=== PATIENT | female | born 1990 | race Caucasian/White ===

== ENCOUNTER 2018-07-09 17:10 | Inpatient (IN) | payer OTHER ==
[2018-07-09] MEDS ORDERED: SODIUM PHOSPHATE/NA BIPHOS 133 ML ENEMA PR ONE (17:26)
[2018-07-09] MEDS ORDERED: DEXTROSE 5%-LACTATED RINGERS 1,000 ML IV SCH (17:30)
[2018-07-09] MEDS ORDERED: DINOPROSTONE 10 MG VAGINAL SUPPOSITORY VG ONE (17:35)
[2018-07-09 18:09] VITALS: BMI 39.8
--- NOTE | 2018-07-09 18:20 | HP ---
Past Medical History - Primary Care Physician PCP:: Brigette Dominguez - Admission Chief Complaint: 27 yrs , 40.5 weeks admitted for induction of labor. sono , bpp /, , vx , dipak 12.1 cmm, efw 9lbs. pt is monitored by NST whih were reactive History of Present Illness: PNC at [address] [place] [address]. wt gain 19 lbs . 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 No: HTN Gastrointestinal: Yes: Gastritis Renal/: Yes: Other (urine gbs bacteriuria pos on 03/27/18) Reproductive: Yes: Other (pap 11/30/17 : pap ascus , non 16/18 HR HPV pos) ...: 3 ...Para: 2 (09/08/12 6'12" 08/08/15 7' ) ...Term: 2 ...: 0 ...Spon : 0 ...Induced : 0 ...Multiple Gestation: 0 ...LMP: 09/27/17 ... Weeks Gestation by Dates: 40.5 ...EDC by Dates: 07/04/18 ...EDC by Sono: 07/04/18 Heme/Onc: No: Anemia Infectious Disease: No: AIDS, HIV, STD's, Tuberculosis Psych: Yes: Other (no h/o mental disorder) - Past Surgical History Past Surgical History: Yes: None Hx Myomectomy: No Hx Transabdominal Cerclage: No - Smoking History Smoking history: Never smoked Have you smoked in the past 12 months: No - Alcohol/Substance Use Hx Alcohol Use: No History of Substance Use: reports: None - Social History History of Recent Travel: No Home Medications - Allergies Allergies/Adverse Reactions: Allergies Allergy/AdvReac Type Severity Reaction Status Date / Time No Known Allergies Allergy Verified 07/09/18 17:44 - Home Medications Home Medications: Ambulatory Orders Vitamins (Sjr) - 1 tab PO DAILY tablet 07/29/15 Physical Exam - Maternity Vital Signs: Vital Signs Temperature 98.3 F 07/09/18 17:30 Pulse Rate 77 07/09/18 17:30 Respiratory Rate 18 07/09/18 17:30 Blood Pressure 131/80 07/09/18 17:30 O2 Sat by Pulse Oximetry (%) Selected Entries 07/09/18 17:44 Weight 204 lb Constitutional: Yes: Well Nourished, Calm, Obese Eyes: Yes: WNL HENT: Yes: WNL, Normocephalic Neck: Yes: WNL Cardiovascular: Yes: WNL, Regular Rate and Rhythm Lungs: Clear to auscultation Breast(s): Yes: WNL - Abdominal Exam/OB Fundal Height: 40 Number of Fetuses: Single Presentation: Vertex Contractions: No Heart Rate (range): 140 Heart Rate Location: [facility] Category: I Accelerations: Uniform Decelerations: None - Vaginal Exam/OB Vaginal Bleediing: No Speculum Exam: No Dilatation (cm): ft Effacement (%): 50 Amniotic Membrane Status: Intact Presentation: Vertex/Position Station: -3 (-3/-4) - Physical Exam Musculoskeletal: Yes: WNL Extremities: Yes: WNL. No: Calf Tenderness Edema: Yes Edema: LLE: 1+, RLE: 1+ Deep Tendon Reflex Grade: Normal +2 ...Motor Strength: WNL Psychiatric: Yes: WNL, Alert, Oriented - Labs Lab Results: Laboratory Tests 07/09/18 07/09/18 07/09/18 19:00 19:00 19:00 WBC 9.1 Hgb 12.7 Hct 37.5 MCV 86.2 MCH 29.2 MCHC 33.9 RDW 15.3 Plt Count 197 Absolute Neuts (auto) 6.6 Neutrophils % 72.1 Lymphocytes % 22.1 Monocytes % 5.3 Eosinophils % 0.2 Basophils % 0.3 PT with INR 10.10 INR 0.89 PTT (Actin FS) 30.5 Sodium 142 Potassium 3.9 Chloride 109 H Carbon Dioxide 19 L BUN 10 Creatinine 0.4 L Random Glucose 114 H Blood Type Antibody Screen 07/09/18 19:00 WBC Hgb Hct MCV MCH MCHC RDW Plt Count Absolute Neuts (auto) Neutrophils % Lymphocytes % Monocytes % Eosinophils % Basophils % PT with INR INR PTT (Actin FS) Sodium Potassium Chloride Carbon Dioxide BUN Creatinine Random Glucose Blood Type O POSITIVE Antibody Screen Negative Problem List - Problems (1) Post term over 40 weeks Code(s): O48.0 - POST-TERM (2) Elective induction of labor planned Code(s): SDQ6912 - (3) Obesity (BMI 35.0-39.9 without comorbidity) Code(s): E66.9 - OBESITY, UNSPECIFIED (4) GBS bacteriuria Code(s): R82.71 - BACTERIURIA Assessment/Plan 27 yrs 40.5 weeks , gbs pos in urine , admitted for induction of labor , suspected 9 lb efw Plan cervidil induction , insertee at 5.37 PM trial of vaginal delivery gbs propphylaxis with ampicillin , when uc are regular stadol + phenrgan prn , pt prefers epidural labor analgesia 9.20 Pm pt c/o pain , pelvic ex 1-2 cm/50 % /mi vx -3 fhr 140 -150 uc 1-2-34-4 irregular , dysfunctional
[2018-07-09 19:40] LABS: BASO % 0.3 % (0-2.0); EOS % 0.2 % (0-4.5); HEMATOCRIT 37.5 % (32.4-45.2); HEMOGLOBIN 12.7 GM/dL (10.7-15.3); LYMPH % 22.1 % (8-40); MCH 29.2 pg (25.7-33.7); MCHC 33.9 g/dl (32.0-36.0); MEAN CELL VOLUME 86.2 fl (80-96); MONO % 5.3 % (3.8-10.2); NEUT % 72.1 % (42.8-82.8); PLATELET COUNT 197 K/MM3 (134-434); RBC 4.35 M/mm3 (3.60-5.2); RDW 15.3 % (11.6-15.6); WHITE BLOOD COUNT 9.1 K/mm3 (4.0-10.0)
[2018-07-09 20:01] LABS: INR 0.89 (0.83-1.09); PROTHROMBIN TIME (PATIENT) 10.1 SEC (9.7-13.0)
[2018-07-09 20:04] LABS: ACTIVATED PTT 30.5 SECONDS (25.2-36.5)
[2018-07-09 20:17] LABS: ANION GAP 14 MMOL/L (8-16); BLOOD UREA NITROGEN 10 mg/dL (7-18); CALCIUM 8.9 mg/dL (8.5-10.1); CHLORIDE 109 mmol/L (98-107); CO2 19 mmol/L (21-32); CREATININE 0.4 mg/dL (0.55-1.3); GLUCOSE,RANDOM 114 mg/dL (74-106); POTASSIUM 3.9 mmol/L (3.5-5.1); SODIUM 142 mmol/L (136-145)
[2018-07-09] MEDS ORDERED: AMPICILLIN SODIUM 2 GM VIAL ONE (20:24)
[2018-07-09] MEDS ORDERED: AMPICILLIN - 2 GM in SODIUM CHLORIDE 100 ML IVPB ONE (20:30)
--- NOTE | 2018-07-09 23:00 | PN ---
Progress Note, Labor Vaginal Exam #1 Labor Exam Date: 07/09/18 Labor Exam Time: 22:50 Heart Rate (range): 150 Dilatation: 3 Effacement (%): 70 Amniotic Membrane Status: Intact Presentation: Vertex/Position Station: -2 Remarks: uc q 2-3-4 min irregular fhr cat-1 pt requests for pain meds will take shower first Selected Entries 07/09/18 22:00 Temperature 98.2 F Pulse Rate 82 Blood Pressure 137/79 Vaginal Exam #2 Labor Exam Date: 07/10/18 Labor Exam Time: 01:10 Heart Rate (range): 140 Dilatation: 10 Effacement (%): 100 Amniotic Membrane Status: Ruptured Presentation: Vertex/Position Station: +2 Remarks: fhr cat-1 uc 1-3 min . 12.00 midnight epidural taken c1.05 AM SROM , cervidil expelled . pt pushing. she received 2 doses of Iv Ampicillin Selected Entries 07/10/18 00:45 Pulse Rate 77 Blood Pressure 119/81
[2018-07-09] MEDS ORDERED: BUTORPHANOL TARTRATE 1 MG/ML VIAL IVPUSH ONE (23:15)
[2018-07-09] MEDS ORDERED: PROMETHAZINE HCL 25 MG/1 ML VIAL IVPUSH ONE (23:15)
[2018-07-09] MEDS ORDERED: FENTANYL/BUPIVACAINE/NS/PF - PCEA - 50 ML DISP.SYRIN EP ONE (23:35)
[2018-07-09] MEDS ORDERED: BUPIVACAINE HCL/PF 0.25% (2.5MG/ML) 10 ML VIAL ONE (23:40)
[2018-07-10] MEDS ORDERED: NALOXONE HCL 0.4 MG/ML VIAL IVPUSH PRN (00:03)
[2018-07-10] MEDS ORDERED: AMPICILLIN SODIUM 1 GM VIAL ONE (00:07)
[2018-07-10] MEDS ORDERED: FENTANYL/BUPIVACAINE/NS/PF - PCEA - 50 ML DISP.SYRIN EP SCH (00:15)
[2018-07-10] MEDS ORDERED: AMPICILLIN - 1 GM in SODIUM CHLORIDE 100 ML IVPB SCH (00:30)
[2018-07-10] MEDS ORDERED: ELECTROLYTE-148 SOLN 1,000 ML IV SCH (00:45)
[2018-07-10] MEDS ORDERED: OXYTOCIN 20 UNITS in 0.9% NS 20 UNIT/1,000 ML INFUS.BAG IV ONE ×2 (01:05→03:09)
[2018-07-10] MEDS: OXYTOCIN 20 UNITS in 0.9% NS 20 UNIT/1,000 ML INFUS.BAG IV SCH ×2 (01:25→03:16)
[2018-07-10] MEDS ORDERED: METHYLERGONOVINE MALEATE 0.2 MG/1 ML AMP IM PRN (01:30)
[2018-07-10] MEDS ORDERED: BISACODYL 10 MG SUPP.RECT RC PRN (01:53)
[2018-07-10] MEDS ORDERED: oxyCODONE HCL 5 MG TABLET PO PRN (01:53)
[2018-07-10] MEDS ORDERED: BENZOCAINE 28 GM HEMORRHOIDAL OINTMENT TP PRN (01:53)
[2018-07-10] MEDS ORDERED: WITCH HAZEL 50% (TUCKS) 40 PAD/JAR PAD TP PRN (01:53)
[2018-07-10] MEDS ORDERED: BENZOCAINE 20% 57 GM BOTTLE TP PRN (01:53)
--- NOTE | 2018-07-10 02:07 | PN ---
Delivery - Delivery Vaginal Delivery: No Problems, Spontaneous (baby delivered vx presentation from KYLEIGH position , immediate oral & nasal suction was done , shoulder delivered without difficulty . perineum intact . 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
[2018-07-10] MEDS: FERROUS SO4 325 MG TABLET (FP) PO SCH ×2 (07:52→17:57)
[2018-07-10] MEDS: IBUPROFEN 600 MG TABLET (FP) PO PRN (07:52)
[2018-07-10] MEDS: ACETAMINOPHEN 325 MG TABLET (FP) PO PRN (07:53)
[2018-07-10] MEDS ORDERED: DIPHTH,PERTUSS(ACELL),TET 0.5 ML DISP.SYRIN IM ONE (10:00)
[2018-07-10] MEDS: PRENATAL VITAMINS W/ FOLIC ACID TABLET (FP) PO SCH (10:04)
[2018-07-11] MEDS: ACETAMINOPHEN 325 MG TABLET (FP) PO PRN ×2 (00:52→19:54)
[2018-07-11] MEDS: IBUPROFEN 600 MG TABLET (FP) PO PRN ×2 (00:53→19:55)
[2018-07-11] MEDS: FERROUS SO4 325 MG TABLET (FP) PO SCH ×2 (08:09→17:23)
[2018-07-11] MEDS: PRENATAL VITAMINS W/ FOLIC ACID TABLET (FP) PO SCH (09:19)
[2018-07-11 09:41] LABS: HEMATOCRIT 33.3 % (32.4-45.2); HEMOGLOBIN 11.1 GM/dL (10.7-15.3); MCH 29.3 pg (25.7-33.7); MCHC 33.5 g/dl (32.0-36.0); MEAN CELL VOLUME 87.5 fl (80-96); MEAN PLT VOLUME 9.5 fl (7.5-11.1); PLATELET COUNT 149 K/MM3 (134-434); RDW 15.7 % (11.6-15.6); WHITE BLOOD COUNT 9.3 K/mm3 (4.0-10.0)
--- NOTE | 2018-07-11 10:44 | PN ---
Post Progress Note - Subjective Subjective: 27 yo Para 3 status post vaginal delivery, seen and evaluated. Doing well. Post Day: 1 Type of Delivery: Vital Signs: Vital Signs Temperature 98.2 F 07/11/18 08:05 Pulse Rate 64 07/11/18 08:05 Respiratory Rate 18 07/11/18 08:05 Blood Pressure 105/64 07/11/18 08:05 O2 Sat by Pulse Oximetry (%) 100 07/10/18 02:45 Uterus: Yes: Fundus Firm Abdomen/GI: Yes: Abdomen soft, Tolerating PO Lochia: Yes: Rubra Lochia, amount: Moderate Extremities: Yes: Calves non-tender Activity: Ambulating - Labs Labs: CBC WBC 9.3 K/mm3 (4.0-10.0) 07/11/18 06:30 RBC 3.80 M/mm3 (3.60-5.2) 07/11/18 06:30 Hgb 11.1 GM/dL (10.7-15.3) 07/11/18 06:30 Hct 33.3 % (32.4-45.2) 07/11/18 06:30 MCV 87.5 fl (80-96) 07/11/18 06:30 MCH 29.3 pg (25.7-33.7) 07/11/18 06:30 MCHC 33.5 g/dl (32.0-36.0) 07/11/18 06:30 RDW 15.7 % (11.6-15.6) H 07/11/18 06:30 Plt Count 149 K/MM3 (134-434) D 07/11/18 06:30 MPV 9.5 fl (7.5-11.1) 07/11/18 06:30 Absolute Neuts (auto) 6.6 K/mm3 (1.5-8.0) 07/11/18 06:30 Neutrophils % No Result Required. 07/11/18 06:30 Lymphocytes % No Result Required. 07/11/18 06:30 Monocytes % 5.3 % (3.8-10.2) 07/09/18 19:00 Eosinophils % 0.2 % (0-4.5) 07/09/18 19:00 Basophils % 0.3 % (0-2.0) 07/09/18 19:00 Nucleated RBC % 0 % (0-0) 07/11/18 06:30 Assessment/Plan Status post vaginal delivery Stable Continue routine care
[2018-07-11 11:26] LABS: ACANTHOCYTES 0; ANISOCYTOSIS 0; HELMET CELLS 0; HOWELL-JOLLY BODIES 0; MACROCYTOSIS 0; OVALOCYTE 0; PLATELET ESTIMATE DECREASED; ROULEAU 0; SICKELED CELLS 0; TARGET CELLS 0; TEAR DROP CELLS 0; TOXIC GRANULATION 0
--- NOTE | 2018-07-11 12:23 | DS ---
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 No: CVA Tenderness - Left, CVA Tenderness - Right Adnexa: Normal: Left ....Post : Yes: Uterus firm, Uterus non-tender, Slight lochia rubra ( perineum intact) Breast(s): Yes: WNL (BF , Not engorged) Musculoskeletal: Yes: WNL Extremities: Yes: WNL. No: Calf Tenderness Edema: Yes Edema: LLE: 1+, RLE: 1+ Neurological: Yes: WNL, Alert, Oriented, Unresponsive Psychiatric: Yes: WNL, Alert, Oriented Labs: CBC, BMP 07/11/18 06:30 07/09/18 19:00 Delivery - Delivery Vaginal Delivery: No Problems, Spontaneous (baby delivered vx presentation from KYLEIGH position , immediate oral & nasal suction was done , shoulder delivered without difficulty . perineum intact . 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 she will be discharged on 07/12/18 she has plans frr BTL, which will be scheduled at pp visit Discharge Summary Reason For Visit: INDUCTION OF LABOR Current Active Problems Elective induction of labor planned (Acute) GBS bacteriuria (Acute) Normal spontaneous vaginal delivery (Acute) Obesity (BMI 35.0-39.9 without comorbidity) (Acute) Post term over 40 weeks (Acute) Condition: Stable - Instructions Diet, Activity, Other Instructions: Post Instructions DIET: Continue good diet high in protein, calcium, and iron rich foods. Drink at least eight (8) glasses of water daily in addition to other fluids. ct Regular diet MEDICATIONS: Continue vitamins and iron as previously directed. Motrin and Tylenol may be taken for minor discomfort. ACTIVITY: Mild to moderate exercise may be started in two (2) weeks. Take frequent rest periods. Resume normal activity after six (6) week check up. WOUND CARE OF OPERATIVE SITE: Continue use of perineal bottle until vaginal discharge stops. Keep area clean. Shower daily. Keep abdominal wound dry. Report any drainage or redness to physician. Tub baths, tampons and douches are not permitted for [address] Breast feeding & or Bottle feeding BREAST CARE: (For those that are not ): If engorgement occurs: Wear tight fitting bra. Take Tylenol or Motrin for pain. Apply cold packs (ice in bags to each breast ) FAMILY PLANNING: There are many control alternatives to pursue and they should be discussed at your first office visit. You may resume sexual activity after your six (6) week check up. (Remember, breast feeding is not a contraceptive) NEXT PHYSICIAN APPOINTMENT: Be certain to call for a six (6) week appointment, unless otherwise directed. Call Clinic or got to Emergency Dept if you have any of the following: Heavy vaginal bleeding Painful urination Leg pain Unusual odor noted to vaginal bleeding High fever Red streaking noted on breast Referrals: Brigette Dominguez MD [Staff Physician] - Disposition: HOME - Home Medications Comprehensive Discharge Medication List: Ambulatory Orders Vitamins (Sjr) - 1 tab PO DAILY tablet 07/29/15 Acetaminophen [Tylenol .Regular Strength -] 650 mg PO Q3H PRN tablet 07/11/18 Ferrous Sulfate [Feosol] 325 mg PO BIDWM tab 07/11/18 Ibuprofen [Motrin -] 200 mg PO Q4H PRN tablet 07/11/18 Vitamins (Sjr) - 1 tab PO DAILY tablet 07/11/18
[2018-07-11] MEDS ORDERED: SENNOSIDES/DOCUSATE COMBO (SENNA PLUS) TABLET (UD) PO PRN (22:00)
--- NOTE | 2018-07-12 06:35 | PN ---
Progress Note (short form) - Note Progress Note: ppd 2 doing well ,no c/o CBC, BMP 07/11/18 06:30 07/09/18 19:00 Last Vital Signs Temp Pulse Resp BP Pulse Ox 98.5 F 76 18 133/89 98 07/11/18 21:10 07/11/18 21:10 07/11/18 21:10 07/11/18 21:10 07/11/18 11:36 abdomen soft, uterus firm , non tender lochia mild no claf tenderness plan d/c home . rtc 4 weeks
[2018-07-12] MEDS: PRENATAL VITAMINS W/ FOLIC ACID TABLET (FP) PO SCH (09:38)
[2018-07-12] MEDS: FERROUS SO4 325 MG TABLET (FP) PO SCH (09:38)
[2018-07-12] MEDS: IBUPROFEN 600 MG TABLET (FP) PO PRN (09:42)
[2018-07-12 10:47] VITALS: BP 132/75; PULSE 69; TEMP 99
== END 2018-07-12 10:35 | disposition home or self-care (01) | DRG 560 ==
LOC: JLDR 17:10 → J3W 07-10 03:23
PROVIDERS: ADMIT Obstetrics & Gynecology; ATTEND Obstetrics & Gynecology
PROC: 3E0P7VZ Introduction of Hormone into Female Reproductive, Via Natural or Artificial Opening (ICD-10-PCS; principal; 2018-07-09)
PROC: 10E0XZZ Delivery of Products of Conception, External Approach (ICD-10-PCS; 2018-07-10)
DX: O48.0 Post-term pregnancy (principal); O99.214 Obesity complicating childbirth; E66.9 Obesity, unspecified; O99.824 Streptococcus B carrier state complicating childbirth; Z68.39 Body mass index [BMI] 39.0-39.9, adult; Z3A.40 40 weeks gestation of pregnancy; Z37.0 Single live birth
CPT/HCPCS: 36415; 59409; 80048; 85025; 85610; 85730; 86593; 86850; 86900; 86901; 90686; 90715; G0008

== ENCOUNTER 2018-09-09 04:58 | Day surgery (SDC) | payer OTHER ==
[2018-09-05 11:54] VITALS: BMI 36.3
--- NOTE | 2018-09-09 10:37 | HP ---
Admitting History and Physical - Admission Chief Complaint: Tubal Sterilization History of Present Illness: 27yo here for tubal sterilization. Adamant she wants permanent sterilization. H/O 3 SVDs. 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 No: Ascites, Cancer, Constipation, Crohn's Disease, Diverticulitis, Diverticulosis, Esophageal Varices, GERD, GI Bleed, Hemorrhoids, Hiatal Hernia, Inflamatory Bowel Disease, Irritable Bowel Disease, Pancreatitis, Peptic Ulcer Disease, Ulcerative Colitis, Other Hepatobiliary: No: Cirrhosis, Cholelithiasis, Cholecystitis, Choledocholithiasis , Hepatitis A, Hepatitis B, Hepatitis C, Other Renal/: Yes: Other (urine gbs bacteriuria pos on 03/27/18). No: Renal Failure, Renal Inusuff, BPH, Cancer, Hematuria, Hemodialysis, Neurogenic Bladder, Renal Calculi, UTI Reproductive: No: Ectopic , Endometriosis, Fibroids, PID, Polycystic Ovary Syndrome, Postmenopausal, Other ...LMP: 09/27/17 ...: No ...: 3 ...Para: 3 Heme/Onc: No: Anemia, B12 Deficiency, Bleeding Disorder, Cancer, Current Chemotherapy, Current Radiation Therapy, Hemochromatosis, Hypercoaguable State, Myeloproliferative Synd, Sickle Cell Disease, Sickle Cell Trait, Thrombocytopenia, Other Infectious Disease: No: AIDS, C-Diff, Herpes Zoster, HIV, MRSA, STD's, Tuberculosis, VREF, Other Psych: Yes: Other (no h/o mental disorder). No: Addictions, Anxiety, Bipolar, Depression, Panic, Psychosis, Schizophrenia Musculoskeletal: No: Bursitis, Chronic low back pain, Hemiparesis, Hemiplegia, Osteoarthritis, Paraplegia, Other Rheumatology: No: Fibromyalgia, Gout, Lupus, Rheumatoid Arthritis, Sarcoidosis, Vasculitis, Other - Past Surgical History Past Surgical History: Yes: None - Smoking History Smoking history: Never smoked Have you smoked in the past 12 months: No - Alcohol/Substance Use Hx Alcohol Use: No History of Substance Use: reports: None - Social History History of Recent Travel: No Home Medications - Allergies Allergies/Adverse Reactions: Allergies Allergy/AdvReac Type Severity Reaction Status Date / Time No Known Allergies Allergy Verified 09/05/18 11:48 - Home Medications Home Medications: Ambulatory Orders Acetaminophen [Tylenol .Regular Strength -] 650 mg PO Q3H PRN tablet 07/11/18 Vitamins (Sjr) - 1 tab PO DAILY tablet 07/11/18 Physical Examination Constitutional: Yes: Well Nourished, No Distress, Calm Eyes: Yes: WNL, Conjunctiva Clear, EOM Intact HENT: Yes: WNL, Atraumatic, Normocephalic Neck: Yes: WNL, Supple, Trachea Midline Cardiovascular: Yes: WNL, Regular Rate and Rhythm Respiratory: Yes: WNL, Regular, CTA Bilaterally Gastrointestinal: Yes: WNL, Normal Bowel Sounds Musculoskeletal: Yes: WNL Extremities: Yes: WNL Edema: No Integumentary: Yes: WNL Neurological: Yes: WNL, Alert, Oriented ...Motor Strength: WNL Psychiatric: Yes: WNL Problem List - Problems (1) Admission for tubal ligation Code(s): Z30.2 - ENCOUNTER FOR STERILIZATION Assessment/Plan 27yo here for sterilization Previously counseled regarding LARCs/alternatives. Declined. Adamant she wants permanent sterilization. Risk of procedure, including bleeding, infection and injury to surrounding tissue discussed. All questions answered. Consent signed. Margie Shane MD
[2018-09-09] MEDS ORDERED: LIDOCAINE HCL/PF 2% SDV 5ML VIAL ONE (11:26)
[2018-09-09] MEDS ORDERED: PROPOFOL 20 ML ONE (11:26)
[2018-09-09] MEDS ORDERED: MIDAZOLAM HCL 2 MG/2 ML SINGLE DOSE VIAL ONE (11:27)
[2018-09-09] MEDS ORDERED: BUPIVACAINE HCL/PF 0.5% (5MG/ML) 10 ML VIAL ONE (11:52)
[2018-09-09] MEDS ORDERED: BUPIVACAINE HCL/PF 0.25% (2.5MG/ML) 10 ML VIAL ONE (11:52)
[2018-09-09] MEDS ORDERED: BUPIVACAINE HCL/PF 0.25% (2.5MG/ML) 10 ML VIAL IJ ONE ×2 (11:58)
[2018-09-09] MEDS ORDERED: DEXAMETHASONE SOD PHOSPHATE 4 MG/1 ML VIAL ONE (12:01)
[2018-09-09] MEDS ORDERED: KETOROLAC TROMETHAMINE 30 MG/1 ML VIAL ONE (12:01)
[2018-09-09] MEDS ORDERED: ROCURONIUM BROMIDE 50 MG/5 ML VIAL ONE (12:01)
[2018-09-09] MEDS ORDERED: GLYCOPYRROLATE 0.2 MG/1 ML VIAL ONE (12:15)
[2018-09-09] MEDS ORDERED: NEOSTIGMINE METHYLSULFATE 0.5 MG/ML - 10 ML MDV ONE (12:15)
[2018-09-09] MEDS ORDERED: ONDANSETRON 4 MG/2 ML VIAL IVPUSH PRN (13:17)
[2018-09-09] MEDS ORDERED: oxyCODONE HCL 5 MG TABLET PO PRN ×2 (13:17)
[2018-09-09] MEDS ORDERED: LACTATED RINGERS SOLUTION 1,000 ML IV SCH (13:30)
--- NOTE | 2018-09-09 13:36 | OP ---
Operative Note - Note: Operative Date: 09/09/18 Pre-Operative Diagnosis: Desires Sterilization Operation: Laparoscopic Bilateral Salpingectomy Findings: Normal uterus, normal tubes and ovaries Surgeon: Margie Shane Anesthesia: General Specimens Removed: Bilateral fallopian tubes Estimated Blood Loss (mls): 5 Drains, Volume Out (mls): 800 (clear urine) Operative Report Dictated: Yes
[2018-09-09] MEDS ORDERED: oxyCODONE HCL 5 MG TABLET ONE (15:37)
[2018-09-09] MEDS ORDERED: oxyCODONE HCL 5 MG TABLET PO ONE (15:45)
--- NOTE | 2018-09-09 16:12 | SURG ---
Surgery Privacy Officer Note Privacy Officer: Mabel Bruner PA-C (Suzy) Date of Service: 09/09/18 Diagnosis: Sterilization Procedure: Laparoscopic Bilateral Salpingectomy I was present for the entirety of the operative procedure. For further detail, please refer to operative report. Visit type - Case Type Case Type: Scheduled - Emergency Emergency Visit: No - New patient This patient is new to me today: Yes Date on this admission: 09/09/18 - Critical Care Critical Care patient: No
[2018-09-09 18:54] VITALS: BP 125/83; PULSE 90; TEMP 97.9
--- NOTE | 2018-09-10 08:35 | OP ---
DATE OF OPERATION: 09/09/2018 PREOPERATIVE DIAGNOSIS: Desires permanent sterilization. POSTOPERATIVE DIAGNOSIS: Desires permanent sterilization. PROCEDURE: Laparoscopic bilateral salpingectomy. SURGEON: Margie Shane MD SHOT PEENING OPERATOR: JOSE GUADALUPE Grigsby ANESTHESIA: General. INTRAVENOUS FLUIDS: Per anesthesia record. ESTIMATED BLOOD LOSS: 5 mL. URINE: Clear urine 800 mL at the end of the procedure. FINDINGS: Normal tubes and ovaries bilaterally. COMPLICATIONS: None. CONDITION: Stable to PACU. SPECIMENS: Bilateral fallopian tubes. NATURE OF PROCEDURE: After appropriate consents were signed, the patient was taken to the operating room where spinal anesthesia was administered. She was placed in dorsal lithotomy position. Cabrera catheter was inserted. Abdomen was prepped and draped in normal sterile fashion. Time-out was performed confirming the correct patient and procedure. Then, 0.25% Marcaine was injected into the umbilicus. Using a 15-blade scalpel, an incision was made umbilically to accommodate the 5-mm scope, which was introduced under direct visualization with a mm trocar. Correct placement was confirmed. The abdomen was insufflated with gas. Patient was placed in Trendelenburg position. Normal anatomy was seen in the pelvis. Normal tubes, ovaries, and uterus. A left lower quadrant port was then made after Marcaine was injected. A 15-blade scalpel was incised to accommodate a 5-mm trocar, which was then introduced under direct visualization. Attention was then paid to the right lower quadrant, where another 5-mm trocar was introduced in the same fashion. Using atraumatic grasper, the uterus was tented upwards. The fallopian tubes were visualized and carried through to the fimbriated ends and noted to be normal. Using a LigaSure device, the left fallopian tube was grasped with the grasper, and along the mesosalpinx, the fallopian tube was ligated. Then, active insertion to the uterus, the tube was transected. The fallopian tube was removed in its entirely and sent for pathology. Attention was then paid towards the right fallopian tube, which was taken down in a similar fashion. Both stumps were noted to be hemostatic. No bleeding was noted. The ports were taken out in the right and left lower quadrants under direct visualization. No bleeding ensued. The umbilical port was taken out without difficulty. The abdomen was deflated of gas. The 3 trocar sites were closed with a 4-0 Biosyn, bandages were placed, the Cabrera catheter was removed. Patient was taken from the recovery room to PACU in stable condition. MD TINA RICHARDSON/[id number]
--- NOTE | 2018-09-10 19:16 | PATH ---
Surgical Pathology Report Patient Name: CHINO QUINTANA [facility]. Rec. #: [id number] /Age/Gender: 1990 (Age: 27) / F Account: [id number] Location: [facility] SURGICAL Taken: 09/09/2018 Received: 09/09/2018 Reported: 09/10/2018 Physicians: Margie Shane Specimen(s) Received A: LEFT FALLOPIAN TUBE B: RIGHT FALLOPIAN TUBE Clinical History Desired sterilization Final Diagnosis A. FALLOPIAN TUBE, LEFT, SALPINGECTOMY: FALLOPIAN TUBE WITH PARATUBAL CYST (INCLUDING FIMBRIATED END AND FULL LUMINAL PORTION). B. FALLOPIAN TUBE, RIGHT, SALPINGECTOMY: UNREMARKABLE FALLOPIAN TUBE (INCLUDING FIMBRIATED END AND FULL LUMINAL PORTION). Electronically Signed Shayna Cool M.D. Gross Description A. Received in formalin labeled "left fallopian tube," is a 3.5 cm in length fimbriated fallopian tube with a 0.7 cm in greatest dimension pedunculated cyst attached to the fimbria. The outer surface of the fallopian tube is bueno-pink and smooth. Sectioning reveals an unremarkable lumen. Sales Incentive Analyst sections are submitted in 2 cassettes as follows: 1-fimbria with attached cyst; 2-cross sections of fallopian tube. B. Received in formalin labeled "right fallopian tube," is a 4 cm in length fimbriated fallopian tube. The outer surface is bueno-pink and smooth. Sectioning reveals an unremarkable lumen. Sales Incentive Analyst sections are submitted in 2 cassettes as follows: 1-fimbria; 2-cross sections of fallopian tube. 09/09/2018 [facility]09/09/2018
== END 2018-09-09 16:30 | disposition home or self-care (01) ==
LOC: JASU-SURG 04:58
PROVIDERS: ATTEND Obstetrics & Gynecology
PROC: 0UL74ZZ Occlusion of Bilateral Fallopian Tubes, Percutaneous Endoscopic Approach (ICD-10-PCS; principal; 2018-09-09 11:00)
DX: Z30.2 Encounter for sterilization (principal)
CPT/HCPCS: 84703; 88302-TC; 94760

== ENCOUNTER 2024-02-17 12:07 | Emergency (ER) | payer OTHER ==
[2024-02-17 12:18] VITALS: BP 149/77; PULSE 79; RESP 20; TEMP 97.3; BMI 36.6
[2024-02-17] MEDS ORDERED: KETOROLAC TROMETHAMINE 30 MG/1 ML VIAL ONE (12:58)
[2024-02-17] MEDS: KETOROLAC TROMETHAMINE 30 MG/1 ML VIAL IM ONE (13:00)
== END 2024-02-17 13:24 | disposition home or self-care (01) ==
LOC: JERFT 12:07
PROC: 3E023GC Introduction of Other Therapeutic Substance into Muscle, Percutaneous Approach (ICD-10-PCS; principal; 2024-02-17)
DX: S96.912A Strain of unspecified muscle and tendon at ankle and foot level, left foot, initial encounter (principal); M79.672 Pain in left foot; X58.XXXA Exposure to other specified factors, initial encounter
CPT/HCPCS: 73630-TC-LT; 99284-25